=== PATIENT | female | born 1995 | race Caucasian/White ===

== ENCOUNTER 2017-02-02 18:01 | Emergency (ER) | payer OTHER ==
[~2017-02-02] VITALS: Ht 162.6 cm; Wt 51.7 kg
[2017-02-02] MEDS ORDERED: IV NORMAL SALINE 1,000ML 1,000 ML IV SCH ×2 (18:47→19:30)
[2017-02-02 18:57] LABS: BASO # 0.1 x10^3/uL (0.0-0.2); BASO % 1 % (0-3); CALCIUM 8.7 mg/dL (8.5-10.1); CREATININE 0.7 mg/dL (0.6-1.0); EOS # 0.1 x10^3/uL (0.0-0.7); EOS % 1 % (0-3); GFR 106.7; HEMATOCRIT 39.1 % (36.0-47.0); HEMOGLOBIN 13.1 g/dL (12.0-15.5); LYMPH # 3.5 x10^3/uL (1.0-4.8); LYMPH % 28 % (24-48); MEAN CORPUSCULAR HEMOGLOBIN 31 pg (25-35); MEAN CORPUSCULAR HGB CONC 33 g/dL (31-37); MEAN CORPUSCULAR VOLUME 92 fL (79-100); MONO # 0.7 x10^3/uL (0.0-1.1); MONO % 6 % (0-9); NEUT # 7.9 x10^3uL (1.8-7.7); NEUT % 64 % (31-73); PLATELET COUNT 207 x10^3/uL (140-400); POTASSIUM 3.4 mmol/L (3.5-5.1); RED BLOOD COUNT 4.25 x10^6/uL (3.50-5.40); RED CELL DISTRIBUTION WIDTH 14.1 % (11.5-14.5); WHITE BLOOD COUNT 12.4 x10^3/uL (4.0-11.0)
[2017-02-02] MEDS ORDERED: POTASSIUM CHLORIDE 20 MEQ/15 ML ORAL LIQUID. PO ONE (19:15)
--- NOTE | 2017-02-02 19:42 | PHYS DOC ---
General Chief Complaint: VAGINAL BLEEDING Stated Complaint: HEAVY VAGINAL BLEEDING Time Seen by MD: 18:04 Source: patient Exam Limitations: no limitations Problems: History of Present Illness Initial Comments Patient is a 9 weeks gestation 1, 21-year-old female who comes to the ED complaining of miscarriage. Patient and her spouse have just moved here from [place] he is in the and the patient will be following [facility]. Patient states that on she had her initial OB appointment with Dr. Dunn in [place]. She says on that day evaluation revealed no heartbeat and on Saturday she had an ultrasound which confirmed she was miscarrying. She states that she's been bleeding on and off since Saturday her blood type is A+ and she was prescribed [place] she doesn't know the dose for discomfort. Today around 3 PM she says she stood up and felt a gush of blood which soiled her clothing. She's had worsening of her suprapubic and low back discomfort and some increased bleeding having changed her pad several times since 3 PM. She doesn't have a local OB and will have to go through [facility] and her is at work until 10:00 PM tonight. Her family doesn't live in the area but they encouraged her to come to the emergency department to be checked. She has felt a little lightheaded today uncertain as to whether that's from the medication or actual blood loss. She denies history of coagulopathy no risks that she knows of no prior STI. She is only passing blood no tissue that she knows of. She denies headache focal weakness vision changes palpitations chest pain or trouble breathing. ED vitals: 98, 67, 16, 101/60, 98% room air Timing/Duration: changing over time (2 days) Severity: moderate Modifying Factors: worse with movement, improves with rest Associated Symptoms: other Allergies: Coded Allergies: latex (Verified Allergy, Intermediate, 02/02/17) Past Medical History Medical History: no pertinent history Surgical History: no surgical history LMP (Females 10-50): Social History Smoker: non-smoker Alcohol: none Drugs: none Review of Systems Constitutional: denies chills, denies diaphoresis, denies fever, malaise Respiratory: denies cough, denies shortness of breath, denies wheezing Cardiovascular: denies chest pain, denies palpitations, denies syncope Gastrointestinal: denies diarrhea, denies nausea, denies vomiting Genitourinary: see HPI Musculoskeletal: see HPI, denies joint swelling, denies neck pain Psychiatric/Neurological: denies headache, denies numbness, denies paresthesia Hematologic/Lymphatic: denies blood clots, denies easy bleeding, denies easy bruising Physical Exam General Appearance: WD/WN, mild distress (emotional miscarriage) Eyes: bilateral eye normal inspection, bilateral eye PERRL, bilateral eye EOMI Ear, Nose, Throat: hearing grossly normal, normal ENT inspection (dry membranes ), normal pharynx Neck: non-tender, supple Respiratory: normal breath sounds, no respiratory distress Cardiovascular: normal peripheral pulses, regular rate, rhythm Gastrointestinal: normal bowel sounds, non tender, soft Back: no CVA tenderness, no vertebral tenderness Extremities: non-tender, normal inspection, no pedal edema, no calf tenderness , pelvis stable Neurologic/Psychiatric: fall intern II-XII nml as tested, no motor/sensory deficits, alert, oriented x 3, other (sad, emotional, no SI/HI) Skin: pallor (poor turgor) Orders, Labs, Meds 1931: First L NS bolus in, pt hasn't yet needed to urinate. Her color improved , still with some pallor. Another liter ordered, as well as 20meq KCL PO for K + 3.4. Platelets normal, INR 1.2 reassuring workup. Departure Time of Disposition: 19:50 Disposition: 01 HOME, SELF-CARE Diagnosis: spontaneous miscarriage, hypokalemia, hypovolemia Condition: IMPROVED Patient Instructions: Dehydration, Adult, [id number], Miscarriage, Easy-to- Read Additional Instructions: Physical/pelvic rest, no strenuous activity. Aggressive hydration with gatorade, water. Eat one banana twice daily until doctor follow up to keep potassium level up. Continue current medications as discussed. OTC stool softeners while taking norco to prevent constipation. Follow up at [facility] in person Saturday morning. You will need to follow up with an [facility] this week and it seems unreasonable that or would require you to drive to [place] on for follow up doctor appointment. Request a referral for local OB this week. Return to ED with new or changing symptoms. YAMILEX PARKS DO Feb 02, 2017 19:42
[2017-02-02] MEDS ORDERED: KETOROLAC 30 MG/ML VIAL. IV ONE (20:30)
[2017-02-02 21:30] VITALS: BP 112/64
== END 2017-02-02 21:55 | disposition home or self-care (01) ==
LOC: ER 18:01
DX: O03.9 Complete or unspecified spontaneous abortion without complication (principal); E86.1 Hypovolemia; E87.6 Hypokalemia; Z91.040 Latex allergy status
CPT/HCPCS: 36415; 80048; 85025; 85610; 85730; 96361; 96374; 96375; 99285; J1885; J3010; J7030